=== PATIENT | male | born 1975 | race Caucasian/White ===

== ENCOUNTER 2016-11-20 15:47 | Inpatient (IN) | payer MEDICARE ==
--- NOTE | ~2016-11-20 | OP ---
Record Of Operation [facility] [address] [place]. [address] NAME: LISSA TORRES : 71 STATUS : ADM IN PAT#: [id number] AGE: 41 ADM/REG DATE : 11/20/16 MR#: [id number] REPORT SERV DATE: 11/21/16 DICTATED BY: GALO MURGUIA DATE: 11/20/16 REPORT STATUS : Draft TRANSCRIBED BY: MODL DATE: 11/20/16 DATE OF PROCEDURE: 11/20/2016 PTCA REPORT INDICATION FOR THIS PROCEDURE: Acute anterior wall myocardial infarction with cardiogenic shock. DESCRIPTION OF PROCEDURE: The patient was already prepped and draped. A 6-Vincentian sheath was in place in the left femoral artery from preceding cardiac catheterization. A 6-Vincentian JL4 coronary guiding catheter was advanced to the left coronary ostium. Left coronary artery injection showed 100% occlusion of the proximal LAD. A 0.014 Graphix guidewire was passed through the occlusion into the distal vessel. Using a FineCross catheter, the Graphix guidewire was exchanged for 0.014 Grand Slam guidewire for improved support. The vessel was dilated with a 2.5/15 Emerge balloon at up to 15 atmospheres pressure for 15 seconds in duration. Thrombectomy was then performed using a Pronto thrombectomy catheter. A 3.5/20 Synergy stent was then deployed in the proximal LAD at up to 15 atmospheres pressure for 15 seconds in duration. Following removal of balloon and guidewire, final left coronary artery injection showed 0% residual stenosis with GILSON grade 3 distal flow. Because of the patient's elevated end-diastolic pressure and persistent hypotension, it was decided to place an intraaortic balloon pump. The 6-Vincentian sheath was exchanged for an 8-Vincentian intraaortic balloon pump sheath in the left femoral artery and intraaortic balloon pump catheter was positioned in the descending thoracic aorta. Intraaortic balloon pump counterpulsation was begun at 1:1. The balloon pump was secured in place. There were no apparent complications. TOTAL CONTRAST USED: 225 mL. TOTAL RADIATION EXPOSURE: 1390 mGy. ESTIMATED BLOOD LOSS: No significant blood loss occurred. IMPRESSION: 1. Successful recanalization of occluded proximal LAD using balloon angioplasty, thrombectomy, and placement of drug-eluting stent. 2. Placement of intraaortic balloon pump for treatment of cardiogenic shock. SS/MODL Galo Murguia M.D., Anju / [id number] Record Of Operation [address] [address] NAME: LISSA TORRES : 71 STATUS : ADM IN PAT#: [id number] AGE: 41 ADM/REG DATE : 11/20/16 MR#: [id number] REPORT SERV DATE: 11/21/16 DICTATED BY: GALO MURGUIA DATE: 11/20/16 REPORT STATUS : Draft TRANSCRIBED BY: JF DATE: 11/20/16 CC: Galo Murguia M.D., Anju
--- NOTE | ~2016-11-20 | DS ---
Discharge Summary [facility] [address] [place]. [address] NAME: LISSA TORRES : 71 STATUS : DIS IN PAT#: [id number] AGE: 41 ADM/REG DATE : 11/20/16 MR#: [id number] REPORT SERV DATE: 01/01/17 DICTATED BY: GALO MURGUIA DATE: 12/31/16 REPORT STATUS : Draft TRANSCRIBED BY: MODL DATE: 12/31/16 Data Collection from hospitalization DISCHARGE DIAGNOSIS(ES): 1. Acute anterolateral myocardial infarction with cardiac arrest. 2. History of substance abuse including heroin. CONSULTATIONS: 1. Marty Nye DO. 2. Melecio Langford MD. 3. Omega Teresa M.D. PROCEDURES PERFORMED: 1. Cardiac catheterization, 11/20/2016. 2. PTCA 11/20/2016. 3. CT scan of the brain without contrast, 11/22/2016. 4. MRI of the brain without contrast, 11/23/2016. 5. Lumbar puncture 11/26/2016. 6. Electroencephalogram, 11/22/2016. 7. Electroencephalogram, 11/23/2016. 8. Electroencephalogram, 11/28/2016. PATHOLOGY: Cerebrospinal fluid aspiration (thin prep)-within normal limits. No malignant cells identified. MEDICATIONS: CONDITION AT DISCHARGE: DISPOSITION: [facility]. HOSPITAL COURSE: This is a 41-year-old man who is a drug abuser and had just come from drug court when he began to have oppressive substernal chest discomfort. He was brought to the [facility] Emergency Room where he had a witnessed cardiac arrest which was apparently around five minutes' duration. He was found to be in ventricular fibrillation and was defibrillated three times. He was transferred to [facility] to undergo urgent cardiac catheterization. EKG at [facility] showed an extensive anterior myocardial infarction. The patient was felt to have had acute anterolateral myocardial infarction and was admitted at this time for further evaluation and treatment. Upon admission, it was felt that he would need to undergo cardiac catheterization and possible percutaneous coronary intervention. He was taken to the cardiac worm farm laborer where he underwent the above-mentioned procedures. He tolerated these well, and there were no complications. Following this, he was seen by Dr. Marty Nye. Hypothermia protocol was in place. The patient remained intubated on the ventilator at this time and was sedated with fentanyl and propofol. He was also on amiodarone at this time. He had an intraaortic balloon pump that was currently set at 1-2. Chest x-ray showed no acute cardiopulmonary process. The endotracheal tube was in adequate position. We would recheck arterial blood Discharge Summary [facility] [address] [place]. [address] NAME: LISSA TORRES : 71 STATUS : DIS IN PAT#: [id number] AGE: 41 ADM/REG DATE : 11/20/16 MR#: [id number] REPORT SERV DATE: 01/01/17 DICTATED BY: GALO MURGUIA DATE: 12/31/16 REPORT STATUS : Draft TRANSCRIBED BY: JF DATE: 12/31/16 gas to ensure ventilator settings were optimized. He was on both fentanyl and propofol because of his agitation. He was also on hypothermia protocol at this time. He was given one dose of Tylenol. Blood, urine, and sputum cultures were going to be obtained. We would hold off on antibiotics at this point in time. His urine drug screen was going to be checked. Following day, a PICC line was inserted. He was still intubated and sedated. He had coarse breath sounds bilaterally with a few expiratory wheezes. He had required dopamine overnight. Left ventricular ejection fraction was 20%. He was felt to be in cardiogenic shock on dopamine. On 11/22/2016, he was still intubated and sedated. There was no purposeful response to stimuli. The intraaortic balloon pump was being weaned. Diuresis was being performed. A CT scan of the brain without contrast was performed. He also had an electroencephalogram which was markedly abnormal characterized by the presence of slowing and disorganization of cerebral activity with continuous high-voltage biphasic and triphasic waveforms suggestive of underlying diffuse cerebral dysfunction with possible metabolic component. Hypoxic encephalopathy could not be ruled out. Repeat EEG was recommended. Gentle diuresis was being performed. Acute kidney injury had improved. He was seen by Dr. Melecio Langford. He was felt to have probable hypoxic encephalopathy. The intraaortic balloon pump was removed. He had decerebrate posturing. On the , white count was 11.8. He remained unresponsive. He was tachycardic. Lopressor was increased. His prognosis was grim. Electroencephalogram was performed. This was abnormal characterized by the presence of diffuse slowing of cerebral activity. No paroxysmal epileptiform activity was noted during the study. There was a decrease of biphasic and triphasic waveforms noted on the study performed 24 hours prior to this one. His EEG was compatible with diffuse cerebral dysfunction. An MRI of the brain without contrast was performed. He was not responsive to verbal or painful stimuli. He was felt to have suspected profound anoxic brain injury. His prognosis was poor for neurologic recovery. Supportive care continued. On 11/24/2016, he was still intubated and unresponsive. He had scattered rhonchi in his lungs. White blood cell count was 10.4. He was felt to have hypoxic respiratory failure and remained on the ventilator. We were unable to extubate secondary to decreased level of consciousness. He was receiving vancomycin and Zosyn. On the , he was still unresponsive. Supportive care continued. He had 1+ edema. He did have tachypneic/coughing episodes during the night. He required Ativan. Antibiotics were stopped. Cultures were negative. His prognosis remained poor. On the , he underwent a lumbar puncture. Had trace edema. On the , the patient was on propofol, Precedex, and fentanyl. He was biting on the endotracheal tube and had stiff posturing after sedation cessation. He could not follow commands. Seroquel was being given. We were going to wean sedation as tolerated. No improvement was noted with his mentation. There was no evidence of DETECTIVE HOMICIDE SQUAD infection. A discussion was held with his family regarding his condition and prognosis. His overall prognosis remained poor. No recovery was expected at this point. His family seemed open to withdrawal of care/comfort measures but was not ready to make this decision yet. On the , EEG was performed. This was obtained during comatose state and was considered abnormal secondary to the presence of mild generalized slowing, mostly in the theta range as well as mildly attenuated background activity. No electrographic seizure or clinical seizure was otherwise seen. Compared to the previous EEG, there was mild improvement as well as decreased presence of triphasic waves noted. No electrographic seizures were seen. His family wished for DNR code status but were not ready for terminal Discharge Summary [address] [place]. [address] NAME: LISSA TORRES : 71 STATUS : DIS IN PAT#: [id number] AGE: 41 ADM/REG DATE : 11/20/16 MR#: [id number] REPORT SERV DATE: 01/01/17 DICTATED BY: GALO MURGUIA DATE: 12/31/16 REPORT STATUS : Draft TRANSCRIBED BY: MODVivien DATE: 12/31/16 weaning. Supportive care without aggressive measures or resuscitation would continue. On 11/29/2016, the patient would cough and become bradycardic when sedation was off. His T- max was 99. Seroquel was increased. He remained unresponsive and intubated. On the , there were no significant clinical changes. Supportive care continued. He was seen by Dr. Omega Teresa of Palliative Care. Comfort care orders were going to be initiated. Over the next couple of days, no significant clinical change was noted. His T-max was 101.9. Supportive care continued. His prognosis remained poor. His condition continued to decline. In the international account manager hours of 12/02/2016, he was found without blood pressure, pulse, or respiration. He was pronounced at 0003 a.m. and released to the above-mentioned home. Information collected by: Berta Medrano I submit the above information as my discharge summary. WING/JF Galo Murguia M.D., F.A.CElianCElian / [id number] CC: Galo Murguia M.D., FElianA.CElianCMiguel Arellano MD
--- NOTE | ~2016-11-20 | EEG ---
Electroencephalogram [facility] [address] [place]. [address] NAME: LISSA TORRES : 71 STATUS : ADM IN PAT#: [id number] AGE: 41 ADM/REG DATE : 11/20/16 MR#: [id number] REPORT SERV DATE: 11/28/16 DICTATED BY: DATE: REPORT STATUS : Draft TRANSCRIBED BY: MODL DATE: 11/28/16 CLINICAL INDICATION: Encephalopathy. DESCRIPTION: This EEG was performed using 10/20 electrode placement system. During the EEG study, symmetric background activity was noted with mild attenuation of the background, predominant occipital rhythm of 4-5 hertz. Generalized slowing was seen throughout the EEG study. Photic stimulation was performed with no clear driving response. Hyperventilation was not performed secondary to patient's intubation status. The patient remains comatose during the entire EEG study. During the EEG study, the patient's propofol as well as pressor drip was turned off. Otherwise, no clear activities or variation was seen during the EEG study. INTERPRETATION: This EEG study obtained during comatose state may be considered abnormal secondary to presence of mild generalized slowing mostly in the theta range as well as mildly attenuated background activity. No electrographic seizure or clinical seizure was otherwise seen. Compared to previous EEG, mild improvement as well as decreased presence of triphasic wave was noted. No electrographic seizure was seen during today's EEG study. Clinical correlation is recommended. [facility]/JF Anthony Hand MD / [id number] CC: Galo Crocker M.D., FPurnima.DioneCElian
--- NOTE | ~2016-11-20 | EEG ---
Electroencephalogram [facility] [address] [place]. [address] NAME: LISSA TORRES : 71 STATUS : ADM IN PAT#: [id number] AGE: 41 ADM/REG DATE : 11/20/16 MR#: [id number] REPORT SERV DATE: 11/23/16 DICTATED BY: MELECIO LANGFORD DATE: 11/23/16 REPORT STATUS : Draft TRANSCRIBED BY: MODL DATE: 11/23/16 This is EEG #2. EEG NUMBER: [id number]. Melecio Langford MD. REASON FOR EEG: Status post cardiopulmonary arrest. Rule out anoxic or hypoxic encephalopathy. Abnormal EEG #1 on 11/22/2016. 23 surface electrodes, 10-20 international placement was used. The patient . Video monitoring was utilized. The background activity consisted of dtwgeofl-xw-ltlelu voltage, poorly organized theta and delta scattered throughout, however, the amplitude appeared to be higher in the posterior head regions. There was decrease in frequency and appearance of biphasic and triphasic waveforms. In addition, sharp activity, which was observed during the study 24 hours prior to this one, was markedly decreased. The patient's palm and back forger showed sinus tachycardia, heart rate of approximately 100 beats per minute, and the patient had increase of muscle activity during the tactile, but not verbal stimulation. The muscle activity was well prominent in the frontal region. Otherwise, no significant changes were seen during the EEG. IMPRESSION: ABNORMAL EEG CHARACTERIZED BY PRESENCE OF DIFFUSE SLOWING OF CEREBRAL ACTIVITY. NO PAROXYSMAL EPILEPTIFORM ACTIVITY WAS NOTED DURING THE STUDY. THERE WAS A DECREASE OF BIPHASIC AND TRIPHASIC WAVEFORMS NOTED ON THE STUDY PERFORMED 24 HOURS PRIOR TO THIS ONE. THIS EEG IS COMPATIBLE WITH DIFFUSE CEREBRAL DYSFUNCTION. CLINICAL CORRELATION IS RECOMMENDED. YOHANNES/JF Melecio Langford MD / [id number] CC: Galo Crocker M.D., Anju
--- NOTE | ~2016-11-20 | HP ---
History And Physical [facility] [id number] [place]. [address] NAME: LISSA TORRES : 71 STATUS : ADM IN PAT#: [id number] AGE: 41 ADM/REG DATE : 11/20/16 MR#: [id number] REPORT SERV DATE: 11/20/16 DICTATED BY: GALO MURGUIA DATE: 11/20/16 REPORT STATUS : Draft TRANSCRIBED BY: MODL DATE: 11/20/16 DATE OF ADMISSION: 11/20/2016 HISTORY OF PRESENT ILLNESS: The patient is a 41-year-old white male, drug abuser who had just come from drug court where he began having oppressive substernal chest discomfort. The patient was brought to [facility] Emergency Room where he had a witnessed cardiac arrest which apparently was around 5 minutes duration. He was apparently found to be in ventricular fibrillation and was defibrillated three times. He was subsequently transferred to [facility] for urgent cardiac catheterization. EKG at [facility] showed an extensive anterior myocardial infarction. PAST MEDICAL HISTORY: Remarkable for substance abuse including heroin. SOCIAL HISTORY: The patient is remarkable for recreational drug use. FAMILY HISTORY: Positive for coronary artery disease. REVIEW OF SYSTEMS: Cannot be obtained due to the patient is intubated and sedated. PHYSICAL EXAMINATION: VITAL SIGNS: Blood pressure is 80/60, heart rate is 100, respirations 24. HEENT: Exam is remarkable for the presence of an ET tube. NECK: Shows no jugular venous distention with good carotid upstroke. CHEST: Clear. CARDIOVASCULAR: PMI is lateral to mid clavicular line. S1 is normal. S2 is narrowly split. No gallop is present. ABDOMEN: Soft, nontender with normal bowel sounds. EXTREMITIES: Show no cyanosis, clubbing, or edema. NEURO/PSYCH: The patient is intubated and sedated, but appears to be having some myotonic movements of his upper extremities. IMPRESSION: 1. Acute anterolateral myocardial infarction. 2. Cardiogenic shock. 3. Status post cardiac arrest (witnessed). 4. Heroin abuse. PLAN: Proceed with cardiac catheterization and possible PCI. YOANNA/JF Galo Murguia M.D., Anju History And Physical [address] [address] NAME: LISSA TORRES : 71 STATUS : ADM IN PAT#: [id number] AGE: 41 ADM/REG DATE : 11/20/16 MR#: [id number] REPORT SERV DATE: 11/20/16 DICTATED BY: GALO MURGUIA DATE: 11/20/16 REPORT STATUS : Draft TRANSCRIBED BY: JF DATE: 11/20/16 / [id number] CC: Galo Murguia M.D., Anju
--- NOTE | ~2016-11-20 | CN ---
Consultation Report [facility] [address] [place]. [address] NAME: LISSA TORRES : 71 STATUS : ADM IN [facility]#: [id number] AGE: 41 ADM/REG DATE : 11/20/16 MR#: [id number] REPORT SERV DATE: 11/20/16 DICTATED BY: MARTY NYE DATE: 11/20/16 REPORT STATUS : Draft TRANSCRIBED BY: MODL DATE: 11/20/16 CONSULTATION DATE OF CONSULTATION: A 41-year-old white male, admitted 11/20/2016. The patient has a history of drug abuse, which includes heroin and had just come from drug court when he developed chest pain. He had to go to the [facility] Emergency Room, and he was a witnessed cardiac arrest and VFib. Apparently, had multiple shocks and CPR. He had a semi-sterile right femoral triple-lumen catheter placed by the emergency team and also intubated as well. The patient was sent to the left heart catheterization after a STEMI was called and a drug-eluting stent was placed to the LAD. It did show on the heart catheterization that he had elevated left ventricular end-diastolic pressure greater than 30 and a low EF of 20%. Hypothermia protocol was started. The patient is currently intubated on the ventilator and sedated with fentanyl, propofol. Also on amiodarone as well. He also came on an intra-aortic balloon pump that is currently set at 1-2. REVIEW OF SYSTEMS: Unable to be obtained. PAST MEDICAL HISTORY: Substance abuse, which included heroin. SOCIAL HISTORY: Recreational drug use. FAMILY HISTORY: Positive for coronary artery disease. ALLERGIES: UNKNOWN AT THIS TIME. MEDICINES: Unknown at this time. PHYSICAL EXAMINATION: VITAL SIGNS: Per nursing flow sheet. GENERAL: No acute distress. Currently sedated on the ventilator. Critically ill. NEURO: Sedated. HEENT: Normocephalic, atraumatic. Pupils are equal. NECK: Trachea midline. HEART: Tachycardic, but regular. No murmurs. LUNGS: Mild rhonchi bilaterally. Ventilator settings reviewed. GI: Soft, nontender. EXTREMITIES: No edema or cyanosis. : Kearns catheter in place. SKIN: No obvious rash. LABS: The labs from [facility] reviewed. Consultation Report [facility] [address] [facility] [address] [place]. [address] NAME: LISSA TORRES : 71 STATUS : ADM IN PAT#: [id number] AGE: 41 ADM/REG DATE : 11/20/16 MR#: [id number] REPORT SERV DATE: 11/20/16 DICTATED BY: MARTY NYE DATE: 11/20/16 REPORT STATUS : Draft TRANSCRIBED BY: MODL DATE: 11/20/16 Chest x-ray shows no acute cardiopulmonary process. ET tube in adequate position. ASSESSMENT/PLAN: 1. Ventricular fibrillation arrest. 2. ST-elevation myocardial infarction, status post LAD drug-eluting stent. 3. Respiratory failure. 4. Acute kidney injury. 5. Hypothermia protocol. 6. Hypokalemia. 7. Reduced LV function with EF 20%. 8. History of substance abuse, which includes heroin. Ventilator settings reviewed. Chest x-ray, repeated to ensure good ET tube position. Recheck an arterial blood gas to ensure ventilator settings are optimized. He is on both fentanyl and propofol because of his agitation. He is on hypothermia protocol with a goal temperature to be set at 35 degrees Celsius. We will give him one dose of Tylenol. Blood cultures will also be obtained along with urine and sputum cultures. Hold off on any antibiotics at this time. Intraaortic balloon pump and amiodarone drip per Cardiology. We will follow his in's and out's and his renal function since he does have a mild FAHEEM. Also recheck a urine drug screen. 32 minutes of critical care time. CEP/MODL Marty Nye DO / [id number] CC: Galo Crocker M.D., F.A.C.C.
--- NOTE | ~2016-11-20 | OP ---
Record Of Operation [facility] [address] [place]. [address] NAME: LISSA TORRES : 71 STATUS : ADM IN PAT#: [id number] AGE: 41 ADM/REG DATE : 11/20/16 MR#: [id number] REPORT SERV DATE: 11/21/16 DICTATED BY: GALO CROCKER DATE: 11/20/16 REPORT STATUS : Draft TRANSCRIBED BY: JF DATE: 11/20/16 DATE OF PROCEDURE: 11/20/2016 CARDIAC CATHETERIZATION REPORT INDICATION FOR THIS PROCEDURE: Anterior NM with cardiac arrest. PROCEDURE IN DETAIL: The patient was prepped and draped in the usual sterile fashion. Adequate anesthesia was obtained over the left femoral vessels using lidocaine infiltration. Using the Seldinger technique, a 6-Sammarinese sheath was placed in the left femoral artery. Moderate IV sedation was administered. A 6FL4 coronary catheter was advanced to the left coronary ostium. Left coronary injections were performed in multiple views. Left groin catheter was exchanged for a 6FR4 coronary catheter which was advanced to the right coronary ostium. Right coronary artery injections were then performed in the MACEDONIAN and ESCOBAR views. Following PCI of the LAD, a 6-Sammarinese pigtail catheter was advanced through the arterial sheath into the left ventricular cavity. Pressures were measured across the aortic valve and left ventricular angiogram was tying the ESCOBAR projection. The pigtail catheter was removed over a guidewire and sheath was left in place in anticipation of placement of an intra-aortic balloon pump. The no apparent complications. RESULTS: 1. Pressures: Left ventricular end-diastolic pressure was 38 mmHg and no gradient was present across the aortic valve. 2. Left ventricular angiogram: Left ventricle showed severe anteroapical hypokinesis with global ejection fraction of around 20%. 3. Coronary arteriograms: The left main coronary is normal. Left anterior descending coronary artery is totally occluded proximally. The left circumflex coronary artery has a 50% lesion in the first obtuse marginal branch. The right coronary artery is a dominant vessel and is free of significant disease. IMPRESSION: 1. Acute occlusion of proximal left anterior descending. 2. 50% lesion in the obtuse marginal branch to the left circumflex coronary. 3. Severe left ventricular dysfunction with evidence of an extensive anteroapical myocardial infarction. PLAN: PCI of LAD and placement of intra-aortic balloon pump. YOANNA/JF Galo Crocker M.D., Anju / [id number] Record Of Operation [address] [place] [address] NAME: LISSA TORRES : 71 STATUS : ADM IN PAT#: [id number] AGE: 41 ADM/REG DATE : 11/20/16 MR#: [id number] REPORT SERV DATE: 11/21/16 DICTATED BY: GALO CROCKER DATE: 11/20/16 REPORT STATUS : Draft TRANSCRIBED BY: JF DATE: 11/20/16 CC: Galo Crocker M.D., Anju
--- NOTE | ~2016-11-20 | EEG ---
Electroencephalogram [facility] [address] [place]. [address] NAME: LISSA TORRES : 71 STATUS : ADM IN PAT#: [id number] AGE: 41 ADM/REG DATE : 11/20/16 MR#: [id number] REPORT SERV DATE: 11/23/16 DICTATED BY: MELECIO LANGFORD DATE: 11/23/16 REPORT STATUS : Draft TRANSCRIBED BY: MODL DATE: 11/23/16 EEG NUMBER: [id number]. LOCATION: The patient's CCU bed 4. INTERPRETING PHYSICIAN: Melecio Langford M.D. ORDERING PHYSICIAN: Nissa Olivas M.D. REASON FOR EEG: Status post cardiopulmonary arrest, encephalopathy, and unresponsiveness. 23 surface electrodes, 10-20 international placement was used. The patient was noted to be comatose throughout the study. Video recording was utilized, and photic stimulation was performed. Continuous abnormal high voltage activity was seen throughout the study. Biphasic and triphasic configurations of the waveforms were noted. The activity was in the range of theta and delta between 3 and 5 cycles per second. Occasional sharp activity of high voltage was noted more prominent anteriorly. The background activity could not be ascertained in view of the continuous abnormal activity described above. No significant asymmetry of cerebral activity was noted. Photic stimulation did not produce significant abnormalities although increase of sharp activity was seen at the time of the photic stimulation. There was no photo-convulsive response noted observing the patient. 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 IMPRESSION: MARKEDLY ABNORMAL EEG CHARACTERIZED BY PRESENCE OF SLOWING AND DISORGANIZATION OF CEREBRAL ACTIVITY WITH CONTINUOUS HIGH VOLTAGE BIPHASIC AND TRIPHASIC WAVEFORMS OBSERVED SUGGESTIVE OF UNDERLYING DIFFUSE CEREBRAL DYSFUNCTION WITH POSSIBLE METABOLIC COMPONENT. CLINICAL CORRELATION IS RECOMMENDED. HYPOXIC ENCEPHALOPATHY COULD NOT BE RULED OUT. A REPEAT EEG IS RECOMMENDED IF CLINICALLY INDICATED. YOAHNNES/JF Melecio Langofrd MD / [id number] CC: Galo Crocker M.D., FRoma
[~2016-11-20 15:47] MED LIST: *DENIES; FLEX PO; NORCO1 TA1 PO; PCET PO; PERCOCET1 TA2 PO
[2016-11-20 20:13] LABS: BE (BASE EXCESS) -8.4 MEQ/L (0 +/- 2.5); CARBOXYHEMOGLOBIN 0.3 % (0-3); HCO3 (ACTUAL BICARBONATE) 19.4 MEQ/L (23-27); HEMOBLOGIN CONTENT 16.1 G/DL (14-18); INSTRUMENT SERIAL # 35151; METHEMOGLOBIN 0.5 % (0-3); MODE CMV; O2 CONTENT 22.3 VOL% (18-24); OPERATOR ID 16469; PCO2 (CO2 TENSION) 48 MMHG (35-45); PO2 (O2 TENSION) 142 MMHG (79-93); SAMPLE Arterial; TIDAL VOLUME 650 ML; pH 7.22 (7.37-7.43)
[2016-11-20 20:36] LABS: BASOPHILS 0.2 %; BASOPHILS ABSOLUTE 0.03 10/3/uL (0.0-0.16); EOSINOPHILS 0.3 %; EOSINOPHILS ABSOLUTE 0.05 10/3/uL (0.0-0.53); HEMATOCRIT 43.9 % (40.0-51.0); IMMATURE GRANULOCYTES 1.6 %; IMMATURE GRANULOCYTES ABSOLUTE 0.28 10/3/uL (0.0-0.11); LYMPHOCYTES 7.2 %; LYMPHOCYTES ABSOLUTE 1.28 10/3/uL (0.67-4.30); MEAN CORPUSCULAR HEMOGLOB 29.7 pg (26.0-34.0); MEAN CORPUSCULAR VOLUME 86.9 fL (80-100); MEAN PLATELET VOLUME 9.8 fL (9.2-13.0); MONOCYTES 11.3 %; MONOCYTES ABSOLUTE 2.01 10/3/uL (0.21-1.20); NEUTROPHILS 79.4 %; NEUTROPHILS ABSOLUTE 14.19 10/3/uL (2.02-8.40); PLATELET COUNT 212 10/3/uL (150-400); RBC DISTRIBUTION WIDTH 14.8 % (12.0-16.0); RED CELL COUNT 5.05 10/6/uL (4.7-6.1)
[2016-11-20 20:37] LABS: MANUAL DIFF NO %; MEAN CORPUS HGB CONC 34.2 g/dL (32.0-36.0); WHITE BLOOD CELLS 17.8 10/3/uL (4.5-10.5)
[2016-11-20 21:02] LABS: BUN (BLOOD UREA NITROGEN) 16 MG/DL (6-23); CALCIUM, SERUM 8.5 MG/DL (8.5-10.4); CHLORIDE, SERUM 107 MMOL/L (96-112); CK-MB 193.8 NG/ML; CKMB INDEX (NOT ORD) 8.3; CO2 (CARBON DIOXIDE) 24 MMOL/L (24-34); CPK 2339 U/L (0-200); CREATININE 1.19 MG/DL (0.70-1.30); GFR AFRICAN AMERICAN 86 ML/MIN (>=60); GFR NON AFRICAN AMERICAN 74 ML/MIN (>=60); GLUCOSE, SERUM 119 MG/DL (60-99); PHOSPHORUS, SERUM 3.2 MG/DL (2.5-4.5); POTASSIUM, SERUM 4.5 MMOL/L (3.5-5.3); SODIUM, SERUM 139 MMOL/L (135-148)
[2016-11-21 00:41] LABS: BASOPHILS 0.1 %; BASOPHILS ABSOLUTE 0.02 10/3/uL (0.0-0.16); EOSINOPHILS 0.2 %; EOSINOPHILS ABSOLUTE 0.03 10/3/uL (0.0-0.53); HEMATOCRIT 42.2 % (40.0-51.0); HEMOGLOBIN 14.4 g/dL (13.6-17.8); IMMATURE GRANULOCYTES 0.9 %; IMMATURE GRANULOCYTES ABSOLUTE 0.18 10/3/uL (0.0-0.11); LYMPHOCYTES 10.2 %; LYMPHOCYTES ABSOLUTE 2.03 10/3/uL (0.67-4.30); MANUAL DIFF NO %; MEAN CORPUS HGB CONC 34.1 g/dL (32.0-36.0); MEAN CORPUSCULAR HEMOGLOB 29.2 pg (26.0-34.0); MEAN CORPUSCULAR VOLUME 85.6 fL (80-100); MEAN PLATELET VOLUME 9.9 fL (9.2-13.0); MONOCYTES 1.9 %; MONOCYTES ABSOLUTE 0.37 10/3/uL (0.21-1.20); NEUTROPHILS 86.7 %; NEUTROPHILS ABSOLUTE 17.25 10/3/uL (2.02-8.40); PLATELET COUNT 224 10/3/uL (150-400); RBC DISTRIBUTION WIDTH 14.7 % (12.0-16.0); RED CELL COUNT 4.93 10/6/uL (4.7-6.1); WHITE BLOOD CELLS 19.9 10/3/uL (4.5-10.5)
[2016-11-21 00:52] LABS: CALCIUM, SERUM 8.2 MG/DL (8.5-10.4); CHLORIDE, SERUM 107 MMOL/L (96-112); CO2 (CARBON DIOXIDE) 21 MMOL/L (24-34); CREATININE 1.16 MG/DL (0.70-1.30); GFR AFRICAN AMERICAN 89 ML/MIN (>=60); GFR NON AFRICAN AMERICAN 77 ML/MIN (>=60); PHOSPHORUS, SERUM 2.7 MG/DL (2.5-4.5); SODIUM, SERUM 139 MMOL/L (135-148)
[2016-11-21 00:57] LABS: BUN (BLOOD UREA NITROGEN) 20 MG/DL (6-23); GLUCOSE, SERUM 162 MG/DL (60-99)
[2016-11-21 04:01] LABS: ASCORBIC ACID (UR NOT ORDER) NEG (NEG); BILIRUBIN, URINE NEGATIVE (NEG); KETONE, URINE TRACE MG/DL (NEG); LEUKOCYTE ESTERASE(NOT OR NEG (NEG); WBC (NOT ORDERED) (RFLEX) 3 (0-5)
[2016-11-21 04:15] LABS: BE (BASE EXCESS) -6.2 MEQ/L (0 +/- 2.5); CARBOXYHEMOGLOBIN 0.3 % (0-3); HCO3 (ACTUAL BICARBONATE) 20.5 MEQ/L (23-27); HEMOBLOGIN CONTENT 15.2 G/DL (14-18); INSTRUMENT SERIAL # 35151; METHEMOGLOBIN 0.6 % (0-3); MODE CMV; O2 CONTENT 20.5 VOL% (18-24); PCO2 (CO2 TENSION) 45 MMHG (35-45); PO2 (O2 TENSION) 92 MMHG (79-93); SAMPLE Arterial; TIDAL VOLUME 650 ML; pH 7.28 (7.37-7.43)
[2016-11-21 04:36] LABS: AMPHETAMINES (NOT ORD) NEG (NEG); BARBITURATES (NOT ORDERED NEG (NEG); BENZODIAZEPINES (NOT ORD) POS (NEG); CANNABINOIDS (THC) NEG (NEG); COCAINE (NOT ORDERED) NEG (NEG); OPIATES NEG (NEG); PHENCYCLIDINE(PCP) NEG (NEG); TRICYCLICS POS (NEG)
[2016-11-21 05:37] LABS: HEMATOCRIT 41.5 % (40.0-51.0); HEMOGLOBIN 14.3 g/dL (13.6-17.8); MEAN CORPUS HGB CONC 34.5 g/dL (32.0-36.0); MEAN CORPUSCULAR HEMOGLOB 29.4 pg (26.0-34.0); MEAN CORPUSCULAR VOLUME 85.4 fL (80-100); MEAN PLATELET VOLUME 9.6 fL (9.2-13.0); PLATELET COUNT 219 10/3/uL (150-400); RBC DISTRIBUTION WIDTH 14.7 % (12.0-16.0); RED CELL COUNT 4.86 10/6/uL (4.7-6.1); WHITE BLOOD CELLS 17.9 10/3/uL (4.5-10.5)
[2016-11-21 05:46] LABS: MANUAL DIFF YES %
[2016-11-21 06:09] LABS: ALBUMIN 3.7 G/DL (3.5-5.0); ALKALINE PHOSPHATASE 59 U/L (45-117); BUN (BLOOD UREA NITROGEN) 24 MG/DL (6-23); CALCIUM, SERUM 8.5 MG/DL (8.5-10.4); CHLORIDE, SERUM 107 MMOL/L (96-112); CHOL/HDL RATIO(NOT ORDER) 5.3 (0-5); CHOLESTEROL 237 MG/DL (< 200); CK-MB 424.6 NG/ML; CKMB INDEX (NOT ORD) 12.4; CO2 (CARBON DIOXIDE) 20 MMOL/L (24-34); CPK 3431 U/L (0-200); CREATININE 1.24 MG/DL (0.70-1.30); DIRECT BILIRUBIN < 0.1 MG/DL (0.0-0.4); FREE T4 1.04 NG/DL (0.76-1.46); GFR AFRICAN AMERICAN 82 ML/MIN (>=60); GFR NON AFRICAN AMERICAN 71 ML/MIN (>=60); GLUCOSE, SERUM 161 MG/DL (60-99); HDL CHOLESTEROL 45 MG/DL (> 39); INDIRECT BILIRUBIN(NOT ORDER) 0.4 MG/DL (0.1-0.9); LDL CHOLESTEROL 169 MG/DL (< 130); NON-HDL CHOLESTEROL 192 MG/DL (< 160); POTASSIUM, SERUM 4.2 MMOL/L (3.5-5.3); SGOT(AST) 453 U/L (5-40); SGPT(ALT) 103 U/L (5-65); SODIUM, SERUM 137 MMOL/L (135-148); TOTAL BILIRUBIN 0.5 MG/DL (0-1.2); TOTAL PROTEIN 7.7 G/DL (6.0-8.5); TRIGLYCERIDE 117 MG/DL (< 150); ULTRASENSITIVE TSH 0.837 MCIU/ML (0.358-3.740)
[2016-11-21 06:28] LABS: BAND NEUTROPHILS 4 %; IMMATURE GRANS ABSOLUTE (CALC) 0.18 10/3/uL (0.0-0.11); LYMPHOCYTES 4 %; LYMPHOCYTES ABSOLUTE (CALC) 0.72 10/3/uL (0.67-4.30); METAMYELOCYTES 1 %; MONOCYTES 4 %; MONOCYTES ABSOLUTE (CALC) 0.72 10/3/uL (0.21-1.20); NEUTROPHILS ABSOLUTE (CALC) 16.29 10/3/uL (2.02-8.40); SEGMENTED NEUTROPHIL (0) 87 %; TOTAL NUCLEATED CELLS 100
[2016-11-21 06:30] LABS: PLATELET ESTIMATE ADQ (ADEQUATE); RBC MORPHOLOGY NORM (NORMAL)
[2016-11-21 07:00] LABS: PHOSPHORUS, SERUM 4.3 MG/DL (2.5-4.5)
[2016-11-21 10:21] LABS: HEPATITIS B SURFACE ANTIGEN NON-REACTIVE (NON-REACT)
[2016-11-21 10:25] LABS: HEPATITIS B CORE AB IGM NON-REACTIVE (NON-REAC); HIV COMBO NON-REACTIVE (NON REAC)
[2016-11-21 10:31] LABS: HEP A ANTIBODY IGM NON-REACTIVE (NON-REACT)
[2016-11-21 10:37] LABS: BUN (BLOOD UREA NITROGEN) 27 MG/DL (6-23); CALCIUM, SERUM 8.3 MG/DL (8.5-10.4); CHLORIDE, SERUM 108 MMOL/L (96-112); CO2 (CARBON DIOXIDE) 22 MMOL/L (24-34); CREATININE 1.18 MG/DL (0.70-1.30); GFR AFRICAN AMERICAN 87 ML/MIN (>=60); GFR NON AFRICAN AMERICAN 75 ML/MIN (>=60); GLUCOSE, SERUM 138 MG/DL (60-99); POTASSIUM, SERUM 4.3 MMOL/L (3.5-5.3); SODIUM, SERUM 137 MMOL/L (135-148)
[2016-11-21 12:41] LABS: CK-MB 429.1 NG/ML; CKMB INDEX (NOT ORD) 13.5; CPK 3180 U/L (0-200)
[2016-11-21 13:03] LABS: HEPATITIS C ANTIBODY REACTIVE (NON-REACT)
[2016-11-21 18:22] LABS: PROCALCITONIN 2.56 ng/mL (<0.5)
[2016-11-22 04:26] LABS: BASOPHILS 0.1 %; BASOPHILS ABSOLUTE 0.01 10/3/uL (0.0-0.16); EOSINOPHILS 0 %; HEMATOCRIT 40.3 % (40.0-51.0); HEMOGLOBIN 13.3 g/dL (13.6-17.8); IMMATURE GRANULOCYTES 0.4 %; IMMATURE GRANULOCYTES ABSOLUTE 0.07 10/3/uL (0.0-0.11); LYMPHOCYTES 6.9 %; LYMPHOCYTES ABSOLUTE 1.29 10/3/uL (0.67-4.30); MANUAL DIFF NO %; MEAN CORPUSCULAR HEMOGLOB 29.2 pg (26.0-34.0); MEAN CORPUSCULAR VOLUME 88.4 fL (80-100); MEAN PLATELET VOLUME 9.9 fL (9.2-13.0); MONOCYTES 4.6 %; MONOCYTES ABSOLUTE 0.85 10/3/uL (0.21-1.20); NEUTROPHILS ABSOLUTE 16.45 10/3/uL (2.02-8.40); PLATELET COUNT 167 10/3/uL (150-400); RBC DISTRIBUTION WIDTH 14.6 % (12.0-16.0); RED CELL COUNT 4.56 10/6/uL (4.7-6.1); WHITE BLOOD CELLS 18.7 10/3/uL (4.5-10.5)
[2016-11-22 05:03] LABS: ALBUMIN 3.3 G/DL (3.5-5.0); BUN (BLOOD UREA NITROGEN) 28 MG/DL (6-23); CALCIUM, SERUM 8.5 MG/DL (8.5-10.4); CHLORIDE, SERUM 108 MMOL/L (96-112); CK-MB 162.2 NG/ML; CO2 (CARBON DIOXIDE) 20 MMOL/L (24-34); CPK 3763 U/L (0-200); CREATININE 0.79 MG/DL (0.70-1.30); GFR AFRICAN AMERICAN 127 ML/MIN (>=60); GFR NON AFRICAN AMERICAN 110 ML/MIN (>=60); GLUCOSE, SERUM 121 MG/DL (60-99); POTASSIUM, SERUM 4.1 MMOL/L (3.5-5.3); SODIUM, SERUM 138 MMOL/L (135-148)
[2016-11-22 05:05] LABS: CKMB INDEX (NOT ORD) 4.3; PHOSPHORUS, SERUM 3.2 MG/DL (2.5-4.5)
[2016-11-22 16:34] LABS: A/G RATIO 0.9 (0.7-1.9); ALKALINE PHOSPHATASE 59 U/L (45-117); GLOBULIN 3.8 G/DL (2.5-4.1); SGOT(AST) 309 U/L (5-40); SGPT(ALT) 89 U/L (5-65); TOTAL BILIRUBIN 0.5 MG/DL (0-1.2); TOTAL PROTEIN 7.1 G/DL (6.0-8.5)
[2016-11-23 04:39] LABS: BASOPHILS 0.1 %; BASOPHILS ABSOLUTE 0.01 10/3/uL (0.0-0.16); EOSINOPHILS 0.1 %; EOSINOPHILS ABSOLUTE 0.01 10/3/uL (0.0-0.53); HEMOGLOBIN 11.3 g/dL (13.6-17.8); IMMATURE GRANULOCYTES 0.5 %; IMMATURE GRANULOCYTES ABSOLUTE 0.06 10/3/uL (0.0-0.11); LYMPHOCYTES 8.5 %; LYMPHOCYTES ABSOLUTE 1.01 10/3/uL (0.67-4.30); MEAN CORPUSCULAR HEMOGLOB 29.7 pg (26.0-34.0); MEAN CORPUSCULAR VOLUME 87.4 fL (80-100); MEAN PLATELET VOLUME 10.4 fL (9.2-13.0); MONOCYTES 8.9 %; MONOCYTES ABSOLUTE 1.05 10/3/uL (0.21-1.20); NEUTROPHILS 81.9 %; NEUTROPHILS ABSOLUTE 9.68 10/3/uL (2.02-8.40); PLATELET COUNT 172 10/3/uL (150-400); RBC DISTRIBUTION WIDTH 14.6 % (12.0-16.0); WHITE BLOOD CELLS 11.8 10/3/uL (4.5-10.5)
[2016-11-23 04:41] LABS: HEMATOCRIT 33.2 % (40.0-51.0); MANUAL DIFF NO %
[2016-11-23 06:17] LABS: ALBUMIN 2.6 G/DL (3.5-5.0); BUN (BLOOD UREA NITROGEN) 24 MG/DL (6-23); CALCIUM, SERUM 8.6 MG/DL (8.5-10.4); CHLORIDE, SERUM 106 MMOL/L (96-112); CO2 (CARBON DIOXIDE) 26 MMOL/L (24-34); CREATININE 0.72 MG/DL (0.70-1.30); GFR AFRICAN AMERICAN 132 ML/MIN (>=60); GFR NON AFRICAN AMERICAN 114 ML/MIN (>=60); GLUCOSE, SERUM 139 MG/DL (60-99); PHOSPHORUS, SERUM 1.2 MG/DL (2.5-4.5); POTASSIUM, SERUM 3.4 MMOL/L (3.5-5.3); SODIUM, SERUM 141 MMOL/L (135-148)
[2016-11-23 15:46] LABS: POTASSIUM, SERUM 3.7 MMOL/L (3.5-5.3)
[2016-11-23 15:49] LABS: PHOSPHORUS, SERUM 1.7 MG/DL (2.5-4.5)
[2016-11-23 20:51] LABS: VANCOMYCIN TROUGH 16.8 MCG/ML (10.0-20.0)
[2016-11-24 03:29] LABS: POTASSIUM, SERUM 3.8 MMOL/L (3.5-5.3)
[2016-11-24 04:19] LABS: BASOPHILS 0.1 %; BASOPHILS ABSOLUTE 0.01 10/3/uL (0.0-0.16); EOSINOPHILS 0.2 %; EOSINOPHILS ABSOLUTE 0.02 10/3/uL (0.0-0.53); HEMATOCRIT 32.6 % (40.0-51.0); HEMOGLOBIN 10.7 g/dL (13.6-17.8); LYMPHOCYTES 10.1 %; LYMPHOCYTES ABSOLUTE 1.05 10/3/uL (0.67-4.30); MEAN CORPUS HGB CONC 32.8 g/dL (32.0-36.0); MEAN CORPUSCULAR HEMOGLOB 28.8 pg (26.0-34.0); MEAN CORPUSCULAR VOLUME 87.9 fL (80-100); MEAN PLATELET VOLUME 10.1 fL (9.2-13.0); MONOCYTES 10.1 %; MONOCYTES ABSOLUTE 1.05 10/3/uL (0.21-1.20); NEUTROPHILS 78.5 %; NEUTROPHILS ABSOLUTE 8.19 10/3/uL (2.02-8.40); NUCLEATED RED BLOOD CELLS 0.2 /100WBC (0-0); PLATELET COUNT 194 10/3/uL (150-400); RED CELL COUNT 3.71 10/6/uL (4.7-6.1); WHITE BLOOD CELLS 10.4 10/3/uL (4.5-10.5)
[2016-11-24 04:21] LABS: MANUAL DIFF NO %
[2016-11-24 04:31] LABS: BE (BASE EXCESS) 6.5 MEQ/L (0 +/- 2.5); HCO3 (ACTUAL BICARBONATE) 30.5 MEQ/L (23-27); INSTRUMENT SERIAL # 35151; PCO2 (CO2 TENSION) 42 MMHG (35-45); PO2 (O2 TENSION) 98 MMHG (79-93); pH 7.48 (7.37-7.43)
[2016-11-24 04:32] LABS: ALLENS TEST Pos; CARBOXYHEMOGLOBIN 0.2 % (0-3); HEMOBLOGIN CONTENT 11.8 G/DL (14-18); METHEMOGLOBIN 0.5 % (0-3); MODE CMV; O2 CONTENT 16.2 VOL% (18-24); SAMPLE Arterial; TIDAL VOLUME 500 ML
[2016-11-24 04:34] LABS: ALBUMIN 2.6 G/DL (3.5-5.0); BUN (BLOOD UREA NITROGEN) 23 MG/DL (6-23); CALCIUM, SERUM 8.9 MG/DL (8.5-10.4); CHLORIDE, SERUM 105 MMOL/L (96-112); CO2 (CARBON DIOXIDE) 33 MMOL/L (24-34); CREATININE 0.66 MG/DL (0.70-1.30); GFR AFRICAN AMERICAN 137 ML/MIN (>=60); GFR NON AFRICAN AMERICAN 118 ML/MIN (>=60); GLUCOSE, SERUM 150 MG/DL (60-99); PHOSPHORUS, SERUM 2.4 MG/DL (2.5-4.5); POTASSIUM, SERUM 3.6 MMOL/L (3.5-5.3); SODIUM, SERUM 146 MMOL/L (135-148)
[2016-11-25 00:53] LABS: ALLENS TEST Pos; BE (BASE EXCESS) 3.4 MEQ/L (0 +/- 2.5); CARBOXYHEMOGLOBIN 0.3 % (0-3); HCO3 (ACTUAL BICARBONATE) 26.8 MEQ/L (23-27); HEMOBLOGIN CONTENT 11.7 G/DL (14-18); INSTRUMENT SERIAL # 35151; METHEMOGLOBIN 0.5 % (0-3); MODE CMV; O2 CONTENT 15.8 VOL% (18-24); OPERATOR ID 16503; PCO2 (CO2 TENSION) 37 MMHG (35-45); PO2 (O2 TENSION) 85 MMHG (79-93); SAMPLE Arterial; TIDAL VOLUME 500 ML; pH 7.48 (7.37-7.43)
[2016-11-25 01:16] LABS: BASOPHILS 0.1 %; BASOPHILS ABSOLUTE 0.01 10/3/uL (0.0-0.16); EOSINOPHILS ABSOLUTE 0.15 10/3/uL (0.0-0.53); HEMATOCRIT 31.3 % (40.0-51.0); HEMOGLOBIN 10.4 g/dL (13.6-17.8); IMMATURE GRANULOCYTES 1.7 %; IMMATURE GRANULOCYTES ABSOLUTE 0.13 10/3/uL (0.0-0.11); LYMPHOCYTES ABSOLUTE 1.08 10/3/uL (0.67-4.30); MEAN CORPUS HGB CONC 33.2 g/dL (32.0-36.0); MEAN CORPUSCULAR HEMOGLOB 29.6 pg (26.0-34.0); MEAN CORPUSCULAR VOLUME 89.2 fL (80-100); MEAN PLATELET VOLUME 9.9 fL (9.2-13.0); MONOCYTES 15.6 %; NEUTROPHILS 66.6 %; NEUTROPHILS ABSOLUTE 5.12 10/3/uL (2.02-8.40); NUCLEATED RED BLOOD CELLS 0.3 /100WBC (0-0); PLATELET COUNT 197 10/3/uL (150-400); RBC DISTRIBUTION WIDTH 14.9 % (12.0-16.0); RED CELL COUNT 3.51 10/6/uL (4.7-6.1); WHITE BLOOD CELLS 7.7 10/3/uL (4.5-10.5)
[2016-11-25 01:26] LABS: MANUAL DIFF NO %
[2016-11-25 01:28] LABS: BUN (BLOOD UREA NITROGEN) 25 MG/DL (6-23); CALCIUM, SERUM 8.4 MG/DL (8.5-10.4); CHLORIDE, SERUM 109 MMOL/L (96-112); CREATININE 0.97 MG/DL (0.70-1.30); GFR AFRICAN AMERICAN 110 ML/MIN (>=60); GFR NON AFRICAN AMERICAN 95 ML/MIN (>=60); GLUCOSE, SERUM 151 MG/DL (60-99); PHOSPHORUS, SERUM 2.4 MG/DL (2.5-4.5); POTASSIUM, SERUM 3.7 MMOL/L (3.5-5.3); SODIUM, SERUM 147 MMOL/L (135-148)
[2016-11-25 01:30] LABS: CO2 (CARBON DIOXIDE) 27 MMOL/L (24-34)
[2016-11-25 01:49] LABS: PROCALCITONIN 0.45 ng/mL (<0.5)
[2016-11-25 10:37] LABS: ASCORBIC ACID (UR NOT ORDER) 40 (NEG); BILIRUBIN, URINE NEGATIVE (NEG); KETONE, URINE NEGATIVE (NEG); LEUKOCYTE ESTERASE(NOT OR NEG (NEG); WBC (NOT ORDERED) (RFLEX) 2 (0-5)
[2016-11-26 05:20] LABS: BASOPHILS 0.5 %; BASOPHILS ABSOLUTE 0.04 10/3/uL (0.0-0.16); EOSINOPHILS 6.1 %; EOSINOPHILS ABSOLUTE 0.46 10/3/uL (0.0-0.53); HEMATOCRIT 31.5 % (40.0-51.0); HEMOGLOBIN 10.3 g/dL (13.6-17.8); IMMATURE GRANULOCYTES 4.1 %; IMMATURE GRANULOCYTES ABSOLUTE 0.31 10/3/uL (0.0-0.11); LYMPHOCYTES 17.8 %; LYMPHOCYTES ABSOLUTE 1.34 10/3/uL (0.67-4.30); MANUAL DIFF NO %; MEAN CORPUS HGB CONC 32.7 g/dL (32.0-36.0); MEAN CORPUSCULAR HEMOGLOB 29.3 pg (26.0-34.0); MEAN CORPUSCULAR VOLUME 89.5 fL (80-100); MEAN PLATELET VOLUME 10.1 fL (9.2-13.0); MONOCYTES 14.5 %; MONOCYTES ABSOLUTE 1.09 10/3/uL (0.21-1.20); NEUTROPHILS ABSOLUTE 4.28 10/3/uL (2.02-8.40); PLATELET COUNT 198 10/3/uL (150-400); RBC DISTRIBUTION WIDTH 14.9 % (12.0-16.0); RED CELL COUNT 3.52 10/6/uL (4.7-6.1); WHITE BLOOD CELLS 7.5 10/3/uL (4.5-10.5)
[2016-11-26 05:31] LABS: BUN (BLOOD UREA NITROGEN) 25 MG/DL (6-23); CALCIUM, SERUM 8.5 MG/DL (8.5-10.4); CHLORIDE, SERUM 109 MMOL/L (96-112); CO2 (CARBON DIOXIDE) 28 MMOL/L (24-34); CREATININE 0.75 MG/DL (0.70-1.30); GFR AFRICAN AMERICAN 130 ML/MIN (>=60); GFR NON AFRICAN AMERICAN 112 ML/MIN (>=60); GLUCOSE, SERUM 180 MG/DL (60-99); POTASSIUM, SERUM 3.4 MMOL/L (3.5-5.3); SODIUM, SERUM 146 MMOL/L (135-148)
[2016-11-26 14:00] LABS: GLUCOSE CSF 79 MG/DL (45-70)
[2016-11-26 14:21] LABS: CSF BASO 0 % (NO REF RANGE); CSF EOS 0 % (0-1); CSF LYMPH (NOT ORD) 86 % (28-96); CSF MONO 14 % (16-56); CSF SEGS (NOT ORD) 0 % (0-7)
[2016-11-26 14:23] LABS: CSF APPEARANCE (NOT ORD) CLEAR (CLEAR); CSF COLOR (NOT ORD) COLORLESS (COLORLESS); CSF RBC (NOT ORD) 0 MM3 (NO REFERENCE); CSF WBC (NOT ORD) 4 /uL (0-10); CSF XANTHROCHROMIA NEG (NEG)
[2016-11-26 14:58] LABS: CSF BASO 0 % (NO REF RANGE); CSF EOS 0 % (0-1); CSF LYMPH (NOT ORD) 87 % (28-96); CSF MONO 12 % (16-56); CSF SEGS (NOT ORD) 2 % (0-7)
[2016-11-26 14:59] LABS: CSF APPEARANCE (NOT ORD) CLEAR (CLEAR); CSF COLOR (NOT ORD) COLORLESS (COLORLESS); CSF RBC (NOT ORD) 0 MM3 (NO REFERENCE); CSF WBC (NOT ORD) 3 /uL (0-10); CSF XANTHROCHROMIA NEG (NEG)
[2016-11-27 04:38] LABS: BASOPHILS 0.2 %; BASOPHILS ABSOLUTE 0.02 10/3/uL (0.0-0.16); EOSINOPHILS 4.7 %; EOSINOPHILS ABSOLUTE 0.46 10/3/uL (0.0-0.53); HEMOGLOBIN 10.5 g/dL (13.6-17.8); IMMATURE GRANULOCYTES 3.7 %; IMMATURE GRANULOCYTES ABSOLUTE 0.36 10/3/uL (0.0-0.11); LYMPHOCYTES ABSOLUTE 1.75 10/3/uL (0.67-4.30); MANUAL DIFF NO %; MEAN CORPUS HGB CONC 32.8 g/dL (32.0-36.0); MEAN CORPUSCULAR HEMOGLOB 29.3 pg (26.0-34.0); MEAN CORPUSCULAR VOLUME 89.4 fL (80-100); MEAN PLATELET VOLUME 9.9 fL (9.2-13.0); MONOCYTES 8.1 %; MONOCYTES ABSOLUTE 0.79 10/3/uL (0.21-1.20); NEUTROPHILS 65.3 %; NEUTROPHILS ABSOLUTE 6.32 10/3/uL (2.02-8.40); PLATELET COUNT 197 10/3/uL (150-400); RBC DISTRIBUTION WIDTH 14.7 % (12.0-16.0); RED CELL COUNT 3.58 10/6/uL (4.7-6.1); WHITE BLOOD CELLS 9.7 10/3/uL (4.5-10.5)
[2016-11-27 04:49] LABS: BUN (BLOOD UREA NITROGEN) 25 MG/DL (6-23); CALCIUM, SERUM 8.7 MG/DL (8.5-10.4); CHLORIDE, SERUM 108 MMOL/L (96-112); CO2 (CARBON DIOXIDE) 27 MMOL/L (24-34); CREATININE 0.67 MG/DL (0.70-1.30); GFR AFRICAN AMERICAN 136 ML/MIN (>=60); GFR NON AFRICAN AMERICAN 118 ML/MIN (>=60); PHOSPHORUS, SERUM 3.6 MG/DL (2.5-4.5); SODIUM, SERUM 144 MMOL/L (135-148)
[2016-11-27 04:59] LABS: GLUCOSE, SERUM 123 MG/DL (60-99); POTASSIUM, SERUM 4.2 MMOL/L (3.5-5.3)
[2016-11-28 04:20] LABS: BASOPHILS 0.3 %; BASOPHILS ABSOLUTE 0.03 10/3/uL (0.0-0.16); EOSINOPHILS 4.8 %; EOSINOPHILS ABSOLUTE 0.52 10/3/uL (0.0-0.53); HEMATOCRIT 33.3 % (40.0-51.0); HEMOGLOBIN 10.7 g/dL (13.6-17.8); IMMATURE GRANULOCYTES 4.4 %; IMMATURE GRANULOCYTES ABSOLUTE 0.48 10/3/uL (0.0-0.11); LYMPHOCYTES 18.3 %; LYMPHOCYTES ABSOLUTE 1.99 10/3/uL (0.67-4.30); MANUAL DIFF NO %; MEAN CORPUS HGB CONC 32.1 g/dL (32.0-36.0); MEAN CORPUSCULAR HEMOGLOB 29.1 pg (26.0-34.0); MEAN CORPUSCULAR VOLUME 90.5 fL (80-100); MEAN PLATELET VOLUME 10.5 fL (9.2-13.0); MONOCYTES 10.1 %; NEUTROPHILS 62.1 %; NEUTROPHILS ABSOLUTE 6.75 10/3/uL (2.02-8.40); PLATELET COUNT 218 10/3/uL (150-400); RBC DISTRIBUTION WIDTH 14.6 % (12.0-16.0); RED CELL COUNT 3.68 10/6/uL (4.7-6.1); WHITE BLOOD CELLS 10.9 10/3/uL (4.5-10.5)
[2016-11-28 04:36] LABS: BUN (BLOOD UREA NITROGEN) 26 MG/DL (6-23); CALCIUM, SERUM 8.1 MG/DL (8.5-10.4); CHLORIDE, SERUM 107 MMOL/L (96-112); CO2 (CARBON DIOXIDE) 26 MMOL/L (24-34); CREATININE 0.65 MG/DL (0.70-1.30); GFR AFRICAN AMERICAN 138 ML/MIN (>=60); GFR NON AFRICAN AMERICAN 119 ML/MIN (>=60); GLUCOSE, SERUM 115 MG/DL (60-99); PHOSPHORUS, SERUM 3.8 MG/DL (2.5-4.5); POTASSIUM, SERUM 3.8 MMOL/L (3.5-5.3); SODIUM, SERUM 143 MMOL/L (135-148)
[2016-11-28 16:26] LABS: VDRL, CSF Non Reactive (NR)
[2016-11-29 03:46] LABS: BASOPHILS 0.3 %; BASOPHILS ABSOLUTE 0.03 10/3/uL (0.0-0.16); EOSINOPHILS 4.2 %; EOSINOPHILS ABSOLUTE 0.43 10/3/uL (0.0-0.53); HEMATOCRIT 30.8 % (40.0-51.0); HEMOGLOBIN 9.9 g/dL (13.6-17.8); IMMATURE GRANULOCYTES 4.2 %; IMMATURE GRANULOCYTES ABSOLUTE 0.43 10/3/uL (0.0-0.11); LYMPHOCYTES 17.4 %; LYMPHOCYTES ABSOLUTE 1.78 10/3/uL (0.67-4.30); MEAN CORPUS HGB CONC 32.1 g/dL (32.0-36.0); MEAN CORPUSCULAR HEMOGLOB 29.2 pg (26.0-34.0); MEAN CORPUSCULAR VOLUME 90.9 fL (80-100); MEAN PLATELET VOLUME 10.6 fL (9.2-13.0); MONOCYTES 8.3 %; MONOCYTES ABSOLUTE 0.85 10/3/uL (0.21-1.20); NEUTROPHILS 65.6 %; NEUTROPHILS ABSOLUTE 6.73 10/3/uL (2.02-8.40); PLATELET COUNT 202 10/3/uL (150-400); RBC DISTRIBUTION WIDTH 14.5 % (12.0-16.0); RED CELL COUNT 3.39 10/6/uL (4.7-6.1); WHITE BLOOD CELLS 10.3 10/3/uL (4.5-10.5)
[2016-11-29 03:48] LABS: MANUAL DIFF NO %
[2016-11-29 04:10] LABS: A/G RATIO 0.6 (0.7-1.9); ALBUMIN 2.3 G/DL (3.5-5.0); ALKALINE PHOSPHATASE 51 U/L (45-117); CALCIUM, SERUM 8.3 MG/DL (8.5-10.4); CHLORIDE, SERUM 109 MMOL/L (96-112); CO2 (CARBON DIOXIDE) 25 MMOL/L (24-34); CREATININE 0.82 MG/DL (0.70-1.30); GFR AFRICAN AMERICAN 126 ML/MIN (>=60); GFR NON AFRICAN AMERICAN 108 ML/MIN (>=60); GLOBULIN 4.1 G/DL (2.5-4.1); GLUCOSE, SERUM 121 MG/DL (60-99); PHOSPHORUS, SERUM 3.7 MG/DL (2.5-4.5); POTASSIUM, SERUM 4.3 MMOL/L (3.5-5.3); PREALBUMIN 18.2 MG/DL (17.0-43.0); SGOT(AST) 33 U/L (5-40); SGPT(ALT) 43 U/L (5-65); SODIUM, SERUM 143 MMOL/L (135-148); TOTAL BILIRUBIN 0.3 MG/DL (0-1.2); TOTAL PROTEIN 6.4 G/DL (6.0-8.5)
[2016-11-29 04:11] LABS: BUN (BLOOD UREA NITROGEN) 35 MG/DL (6-23)
[2016-11-29 14:06] LABS: HSV DNA TYPE 1 Not Detected (NOTDET); HSV DNA TYPE 2 Not Detected (NOTDET)
[2016-11-30 05:16] LABS: BASOPHILS 0.3 %; BASOPHILS ABSOLUTE 0.03 10/3/uL (0.0-0.16); EOSINOPHILS 3.1 %; EOSINOPHILS ABSOLUTE 0.28 10/3/uL (0.0-0.53); HEMATOCRIT 29.5 % (40.0-51.0); HEMOGLOBIN 9.3 g/dL (13.6-17.8); IMMATURE GRANULOCYTES ABSOLUTE 0.18 10/3/uL (0.0-0.11); LYMPHOCYTES 14.4 %; MEAN CORPUS HGB CONC 31.5 g/dL (32.0-36.0); MEAN CORPUSCULAR HEMOGLOB 28.7 pg (26.0-34.0); MEAN PLATELET VOLUME 10.8 fL (9.2-13.0); MONOCYTES 8.5 %; MONOCYTES ABSOLUTE 0.77 10/3/uL (0.21-1.20); NEUTROPHILS 71.7 %; NEUTROPHILS ABSOLUTE 6.46 10/3/uL (2.02-8.40); PLATELET COUNT 190 10/3/uL (150-400); RBC DISTRIBUTION WIDTH 14.5 % (12.0-16.0); RED CELL COUNT 3.24 10/6/uL (4.7-6.1)
[2016-11-30 05:18] LABS: MANUAL DIFF NO %
[2016-11-30 05:47] LABS: BUN (BLOOD UREA NITROGEN) 34 MG/DL (6-23); CHLORIDE, SERUM 110 MMOL/L (96-112); CO2 (CARBON DIOXIDE) 26 MMOL/L (24-34); CREATININE 0.71 MG/DL (0.70-1.30); GFR AFRICAN AMERICAN 133 ML/MIN (>=60); GFR NON AFRICAN AMERICAN 115 ML/MIN (>=60); GLUCOSE, SERUM 119 MG/DL (60-99); PHOSPHORUS, SERUM 3.4 MG/DL (2.5-4.5); POTASSIUM, SERUM 4.4 MMOL/L (3.5-5.3); SODIUM, SERUM 145 MMOL/L (135-148)
[2016-11-30 13:54] LABS: M.TB COMP PCR NON RESP NOT DETECTED (NOTDET)
[2016-12-01 06:07] LABS: BASOPHILS 0.4 %; BASOPHILS ABSOLUTE 0.04 10/3/uL (0.0-0.16); EOSINOPHILS 2.5 %; EOSINOPHILS ABSOLUTE 0.27 10/3/uL (0.0-0.53); HEMOGLOBIN 9.4 g/dL (13.6-17.8); IMMATURE GRANULOCYTES 1.9 %; LYMPHOCYTES 16.5 %; LYMPHOCYTES ABSOLUTE 1.78 10/3/uL (0.67-4.30); MEAN CORPUS HGB CONC 31.3 g/dL (32.0-36.0); MEAN CORPUSCULAR HEMOGLOB 28.8 pg (26.0-34.0); MEAN PLATELET VOLUME 11.1 fL (9.2-13.0); MONOCYTES 8.9 %; MONOCYTES ABSOLUTE 0.96 10/3/uL (0.21-1.20); NEUTROPHILS 69.8 %; NEUTROPHILS ABSOLUTE 7.55 10/3/uL (2.02-8.40); PLATELET COUNT 228 10/3/uL (150-400); RBC DISTRIBUTION WIDTH 14.2 % (12.0-16.0); RED CELL COUNT 3.26 10/6/uL (4.7-6.1); WHITE BLOOD CELLS 10.8 10/3/uL (4.5-10.5)
[2016-12-01 06:10] LABS: MANUAL DIFF NO %
[2016-12-01 06:25] LABS: A/G RATIO 0.5 (0.7-1.9); ALBUMIN 2.2 G/DL (3.5-5.0); ALKALINE PHOSPHATASE 57 U/L (45-117); BUN (BLOOD UREA NITROGEN) 31 MG/DL (6-23); CALCIUM, SERUM 8.6 MG/DL (8.5-10.4); CHLORIDE, SERUM 105 MMOL/L (96-112); CO2 (CARBON DIOXIDE) 30 MMOL/L (24-34); CREATININE 0.83 MG/DL (0.70-1.30); GFR AFRICAN AMERICAN 125 ML/MIN (>=60); GFR NON AFRICAN AMERICAN 108 ML/MIN (>=60); GLOBULIN 4.7 G/DL (2.5-4.1); GLUCOSE, SERUM 101 MG/DL (60-99); PHOSPHORUS, SERUM 3.7 MG/DL (2.5-4.5); SGPT(ALT) 33 U/L (5-65); SODIUM, SERUM 142 MMOL/L (135-148); TOTAL BILIRUBIN 0.6 MG/DL (0-1.2); TOTAL PROTEIN 6.9 G/DL (6.0-8.5)
[2016-12-01 06:29] LABS: POTASSIUM, SERUM 4.9 MMOL/L (3.5-5.3); SGOT(AST) 50 U/L (5-40)
== END 2016-12-02 01:25 | disposition expired | DRG 270 ==
LOC: SSU2 15:47 → CCU 18:25
PROVIDERS: Internal Medicine; Internal Medicine Critical Care Medicine; Internal Medicine Interventional Cardiology; Internal Medicine Pulmonary Disease; Nurse Practitioner Family
PROC: 5A02210 Assistance with Cardiac Output using Balloon Pump, Continuous (ICD-10-PCS; principal; 2016-11-20)
PROC: 027034Z Dilation of Coronary Artery, One Artery with Drug-eluting Intraluminal Device, Percutaneous Approach (ICD-10-PCS; 2016-11-20)
PROC: 0JH60PZ Insertion of Cardiac Rhythm Related Device into Chest Subcutaneous Tissue and Fascia, Open Approach (ICD-10-PCS; 2016-11-20)
PROC: 05HM33Z Insertion of Infusion Device into Right Internal Jugular Vein, Percutaneous Approach (ICD-10-PCS; 2016-11-20)
PROC: B2151ZZ Fluoroscopy of Left Heart using Low Osmolar Contrast (ICD-10-PCS; 2016-11-20)
PROC: B2111ZZ Fluoroscopy of Multiple Coronary Arteries using Low Osmolar Contrast (ICD-10-PCS; 2016-11-20)
PROC: 4A023N7 Measurement of Cardiac Sampling and Pressure, Left Heart, Percutaneous Approach (ICD-10-PCS; 2016-11-20)
PROC: 5A1955Z Respiratory Ventilation, Greater than 96 Consecutive Hours (ICD-10-PCS; 2016-11-20)
PROC: 0BH17EZ Insertion of Endotracheal Airway into Trachea, Via Natural or Artificial Opening (ICD-10-PCS; 2016-11-20)
PROC: 02HV33Z Insertion of Infusion Device into Superior Vena Cava, Percutaneous Approach (ICD-10-PCS; 2016-11-21)
PROC: 4A02X4A Measurement of Cardiac Electrical Activity, Guidance, External Approach (ICD-10-PCS; 2016-11-21)
PROC: 009U3ZX Drainage of Spinal Canal, Percutaneous Approach, Diagnostic (ICD-10-PCS; 2016-11-26)
PROC: B01B1ZZ Fluoroscopy of Spinal Cord using Low Osmolar Contrast (ICD-10-PCS; 2016-11-26)
DX: I21.09 ST elevation (STEMI) myocardial infarction involving other coronary artery of anterior wall (principal); J96.01 Acute respiratory failure with hypoxia; I49.01 Ventricular fibrillation; R57.0 Cardiogenic shock; I50.9 Heart failure, unspecified; G93.1 Anoxic brain damage, not elsewhere classified; N17.9 Acute kidney failure, unspecified; J15.0 Pneumonia due to Klebsiella pneumoniae; I46.9 Cardiac arrest, cause unspecified; F19.20 Other psychoactive substance dependence, uncomplicated; I47.2 Ventricular tachycardia; I25.10 Atherosclerotic heart disease of native coronary artery without angina pectoris; Z51.5 Encounter for palliative care; Z66 Do not resuscitate; E66.9 Obesity, unspecified; E87.6 Hypokalemia; B19.20 Unspecified viral hepatitis C without hepatic coma; Z82.49 Family history of ischemic heart disease and other diseases of the circulatory system; Z98.890 Other specified postprocedural states; Z68.34 Body mass index [BMI] 34.0-34.9, adult
CPT/HCPCS: 31720; 33967; 36600; 62270; 70450; 70551; 71010; 74000; 77003; 80048; 80053; 80061; 80069; 80074; 80076; 80202; 80305; 80307; 81001; 82140; 82330; 82550; 82553; 82805; 82945; 82962; 83605; 83735; 84100; 84132; 84134; 84145; 84157; 84439; 84443; 84484; 84999; 85025; 85610; 85730; 86403; 86403-59; 86592; 87015; 87040; 87070; 87077; 87102; 87116; 87186; 87205; 87210; 87327; 87389; 87529; 87529-59; 87535; 87556; 88112; 89051; 92950; 93005; 93458; 94002; 94003; 94640; 94770; 95816; 99152; 99285; A9270-GY; C1725; C1757; C1769; C1874; C1887; C9113; C9606; J0282; J0583; J1630; J1940; J1953; J2250; J2310; J2543; J2997; J3010; J3370; Q9967